=== PATIENT | female | born 1975 | race Caucasian/White ===

== ENCOUNTER 2023-09-29 13:30 | Inpatient (IN) | payer OTHER, SELFPAY ==
[2023-09-29] VITALS (8 sets, daily range): BP systolic 129–159; BP diastolic 79–118; PULSE 101–127; RESP 16–38; TEMP 36.3–38.4; O2SAT 74–99
--- NOTE | ~2023-09-29 | XR_ITS ---
EXAMINATION: XR foot RT min 3V DATE: 09/29/2023 17:31 INDICATION: Dry gangrene at the dorsum of the right foot TECHNIQUE: Dorsoplantar, oblique and lateral views of the right foot were obtained. COMPARISON: None. FINDINGS: Alignment is normal. No fracture. Joint spaces are normal. No cortical erosions or periosteal reactio n. Mild soft tissue swelling over the dorsum of the foot. Assess for radiopaque foreign bodies. IMPRESSION: 1. No osseous abnormality. Reviewed, dictated and finalized at location A. EAR MANUFACTURING SUPERVISOR IMPRESSION: 1. No osseous abnormality.
--- NOTE | ~2023-09-29 | XR_ITS ---
Portable chest x-ray Comparison: None Clinical History: Desaturation Findings: There is mild bibasilar haziness. Cardiomediastinal silhouette is enlarged. Bones and sof t tissues are unremarkable. Impression: Probable mild bibasilar pulmonary edema. Cardiomegaly. Reviewed, dictated and finalized at [facility]. T PRACTICE INTERN Impression: Probable mild bibasilar pulmonary edema. Cardiomegaly.
--- NOTE | ~2023-09-29 | XR_ITS ---
EXAMINATION: XR chest ET placement, XR abdomen gastric tube insert DATE: 09/30/2023 18:16 INDICATION: Endotracheal tube and orogastric tube placement TECHNIQUE: 1. Prone AP view of the chest was obtained. 2. Prone AP view of the abdomen was obtained. COMPARISON: CT dated 09/30/2023 FINDINGS: Chest: Endotracheal tube tip 3 mm above the gregory. Hazy airspace opacities in the right lower lung zone and more dense consolidation in the left lower lung zone consistent with small bilateral posterior layer ing pleural effusions and associated atelectasis and/or pneumonia. No pneumothorax. Cardiomegaly. Abdomen: Nasogastric tube tip in proximal side port in the body the stomach. There are persistent delayed neph rograms at the bilateral kidneys which given the 18 hours of the elapsed time would be consistent wit h renal insufficiency. No dilated loops of bowel to suggest obstruction. IMPRESSION: 1. Endotracheal tube tip 3 mm above the gregory. Consider withdrawal by 2 cm. 2. Nasogastric tube in the stomach. 3. Small bilateral pleural effusions with associated atelectasis and/or pneumonia in the lower lung z ones, left greater than right. 4. Cardiomegaly. 5. Bilateral delayed nephrograms consistent with renal insufficiency. Reviewed, dictated and finalized at location A. LER PICKUP IMPRESSION: 1. Endotracheal tube tip 3 mm above the gregory. Consider withdrawal by 2 cm. 2. Nasogastric tube in the stomach. 3. Small bilateral pleural effusions with associated atelectasis and/or pneumon ia in the lower lung zones, left greater than right. 4. Cardiomegaly. 5. Bilateral delayed nephrograms consistent with renal insufficiency.
--- NOTE | ~2023-09-29 | XR_ITS ---
EXAMINATION: XR foot LT min 3V DATE: 09/29/2023 17:31 INDICATION: Heel ulceration TECHNIQUE: Dorsoplantar, oblique and lateral views of the left foot were obtained. COMPARISON: None. FINDINGS: Alignment is normal. No fracture. Joint spaces are normal. No erosions or periosteal reaction. There is prominent soft tissue swelling over the dorsum of the foot. No soft tissue gas or radiopaque forei gn bodies. IMPRESSION: 1. Soft tissue swelling over the dorsum of the foot. No osseous abnormality. Reviewed, dictated and finalized at location A. FRAME SYSTEMS ADMINISTRATOR
--- NOTE | ~2023-09-29 | CT_ITS ---
CT scan of the right foot CLINICAL HISTORY: Osteomyelitis, gangrene TECHNIQUE: Following intravenous administration of 200 cc of Omnipaque 350 contrast material, axial i maging of the right foot was performed. Sagittal and coronal imaging was performed. Dose reduction te chnique was used on this scan by utilizing automated exposure control and iterative reconstruction te chnique. The dose-length product (DLP) was 878.77 mGy-cm. Findings: Osseous structures are intact. No fracture, dislocation, or CT evidence for osteomyelitis i dentified. No periosteal reaction or erosive change identified. Joint spaces are preserved, without e vidence of degenerative or erosive change. There is extensive subcutaneous soft tissue edema about the ankle and extending over the dorsum of th e foot. No fluid collection evident. No distinct soft tissue ulcer clearly evident. IMPRESSION: No osseous or articular abnormality seen. No evidence for osteomyelitis. Extensive subcutaneous soft tissue edema, which could reflect cellulitis. No abscess evident. Reviewed, dictated and finalized at location . M CONDITIONING OPERATOR IMPRESSION: No osseous or articular abnormality seen. No evidence for osteomyelitis. Extensive subcutaneous soft tissue edema, which could reflect cellulitis. No ab scess evident.
--- NOTE | ~2023-09-29 | CT_ITS ---
Clinical Indication: Pulmonary embolus CT Scan of the Chest with Contrast: Technique: Contiguous sections were acquired throughout the chest after intravenous administration of 200 cc of Omnipaque 350. Dose reduction technique was used on this scan by utilizing automated expos ure control and iterative reconstruction technique. The dose-length product (DLP) was 994.96 mGy-cm. Findings: There is no evidence of any significant mediastinal, hilar or axillary lymphadenopathy. There is no f illing defect in the pulmonary arterial tree to suggest pulmonary embolus. There is no evidence of ao rtic dissection or aneurysm. Moderate pericardial effusion present. Moderate bilateral pleural effusions are present. There is partial bilateral lower lobe atelectasis. There is probable minimal groundglass opacity in the aerated lungs. The lungs are clear. No pulmonary nodules or infiltrates are noted. Images through the upper abdomen reveal no abnormalities. Diffuse soft tissue anasarca changes are no arie. Impression: No evidence of pulmonary embolus, aortic dissection, or aortic aneurysm. Moderate pericardial effusion. Moderate bilateral pleural effusions with partial bilateral lobe atelectasis and minimal pulmonary ed zain. Diffuse soft tissue anasarca changes. Reviewed, dictated and finalized at location . NTIFIC RECRUITER Impression: No evidence of pulmonary embolus, aortic dissection, or aortic aneurysm. Moderate pericardial effusion. Moderate bilateral pleural effusions with partial bilateral lobe atelectasis an d minimal pulmonary edema. Diffuse soft tissue anasarca changes.
--- NOTE | ~2023-09-29 | XR_ITS ---
Portable chest x-ray Comparison: 09/30/2023 Clinical History: Tube placed Findings: Endotracheal tube and NG tube are in satisfactory positions. There is extensive bibasilar pulmonary consolidation, left worse than right. Cardiomediastinal silhouette is stable. Bones and so ft tissues are unremarkable. Impression: Support tubes, as above. Bibasilar pulmonary consolidation, personally. Correlate for pulmonary edema/effusions/atelectasis ve rsus pneumonia. Reviewed, dictated and finalized at location M. USION DIE TEMPLATE MAKER Impression: Support tubes, as above. Bibasilar pulmonary consolidation, personally. Correlate for pulmonary edema/ef fusions/atelectasis versus pneumonia.
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
[2023-09-29 15:00] LABS: Basophils Percent Auto 0.2 % (0.2-1.2); Eosinophils Percent Auto 0.1 % (0-4.4); Hematocrit 46.9 % (37.0-47.0); Hemoglobin 14.8 g/dL (12.0-15.0); Immature Granulocyte Absolute 0.11 K/mm3 (0.00-0.031); Immature Granulocyte Percent A 0.7 % (0-0.5); Lymphocytes Absolute Auto 1.63 K/mm3 (0.9-3.2); Lymphocytes Percent Auto 10.6 % (18.3-44.2); Mean Corpuscular HGB Conc 31.6 g/dl (32-36); Mean Corpuscular Hemoglobin 30.3 pg (26-34); Mean Corpuscular Volume 96.1 fl (80-100); Mean Platelet Volume 11.2 fl (7.4-10.4); Monocytes Absolute Auto 0.8 K/mm3 (0.1-0.6); Monocytes Percent Auto 5.2 % (2.6-8.5); Neutrophils Absolute Auto 12.8 K/mm3 (1.3-6.7); Neutrophils Percent Auto 83.2 % (45.5-73.1); Platelet Count Result 187 k/mm3 (150-375); Red Blood Count 4.88 M/mm3 (4.2-5.4); Red Cell Distribution Width 17.3 % (11.5-14.5); White Blood Count 15.3 K/mm3 (4.5-10.0)
--- NOTE | 2023-09-29 15:05 | PC.NURSE ---
pt refusing additional IV attempt. refusing to have x-rays done at this time. pt states she hasn't had 30 seconds to process everything and this is just too much . edp aware
[2023-09-29 15:10] LABS: INR 1.3; Lactic Acid Reflex 2.5 mmol/L (0.7-2.0); Prothrombin Time 16.7 Seconds (11.1-14.7)
[2023-09-29 15:11] LABS: Partial Thromboplastin Time 28.4 SECONDS (22.3-36.8)
[2023-09-29 15:23] LABS: Alanine Aminotransferase 72 U/L (6-35); Albumin Level 3.4 g/dL (3.5-5.1); Alkaline Phosphatase 113 U/L (38-126); Anion Gap 9 mmol/L (8-16); Aspartate Amino Transferase 82 U/L (14-36); Bilirubin,Total 1.2 mg/dL (0.2-1.3); Blood Urea Nitrogen 26 mg/dL (7-17); Calcium 8.7 mg/dL (8.4-10.2); Carbon Dioxide 24 mmol/L (22-30); Chloride 100 mmol/L (98-107); Estimated CRCL calculation 85 ml/min; Estimated Glomerular Filt Rate > 60; Glucose 192 mg/dL (65-110); Potassium 3.4 mmol/L (3.4-5.0); Sodium 133 mmol/L (137-145)
[2023-09-29 16:15] LABS: CRP 6.6 mg/dL (<1.0)
--- NOTE | 2023-09-29 16:29 | PC.NURSE ---
pt refusing additional IV attempt for medications. refusing x-rays still. pt states she doesn't know what to think. i don't know what to do, i just want to be done
--- NOTE | 2023-09-29 17:28 | PC.NURSE ---
edp at bedside, pt agreeable to get x-rays, IV and fluids, and provide a UA.
[2023-09-29 17:35] LABS: Appearance Urine Clear (Clear); Bacteria Urine None Seen /hpf; Bilirubin Urine Negative (Negative); Blood Urine 2+ (Negative); Color Urine Dark Yellow (Yellow); Glucose Urine UA Negative (Negative); Ketones Urine Negative (Negative); Leukocyte Esterase Ur Negative LEU/UL (Negative); Need Manual Microscopic Reviewed; Nitrate Urine Negative (Negative); Protein Urine 3+ mg/dL (Negative); Specific Grav Ur 1.025 (1.001-1.035); Squamous Epithelial Cell Urine Few /hpf (Few); pH Urine 5.5 (5.0-9.0)
[2023-09-29 17:36] LABS: Add Urine Microscopic? YES; Barbiturate Screen Urine Negative (Negative); Benzodiazepines Screen Urine Negative (Negative)
[2023-09-29 17:57] LABS: Reflex Lactic Acid Yes or No Add Lactic
[2023-09-29] MEDS: SODIUM CHLORIDE 0.9% IV 1,000 ML 999 ML IV CONT (18:24)
[2023-09-29 18:48] LABS: Cannabinoid Screen Urine Positive (Negative); Cocaine Screen Urine Negative (Negative); Methadone Screen Urine Negative (Negative); Opiate Screen Urine Negative (Negative); Phencyclidine Screen Urine Negative (Negative)
[2023-09-29 18:50] LABS: Amphetamine Screen Urine Positive (Negative)
--- NOTE | 2023-09-29 19:14 | PC.NURSE ---
pt c/o itchiness to right ankle. advised not to scratch, states she will try but it's really itchy and i can't help it
[2023-09-29] MEDS: diphenhydrAMINE HCl INJ 50 MG/ML VIAL 25 MG IV PUSH (19:37)
[2023-09-29] MEDS: PIPERACILLN/TAZ 3.375GM/NS50ML 3.375 GM/50 ML BAG IVPB (20:10)
[2023-09-29] MEDS: SODIUM CHLORIDE 0.9% IV 1,000 ML 125 ML IV CONT (20:11)
--- NOTE | 2023-09-29 20:49 | PC.NURSE ---
pt began hyperventilating, stating she can't breathe. pt non-compliant with pulse-ox or tele-leads, continuing to pull them off. pt given 15L o2 via NRB for comfort and RN attempted to do guided breathing to help pt slow breathing down. pt states i can't slow down while i can't breath! pt pulled o2 mask down to chin, but is leaving on face. attempted to call hospitalist for update and orders, awaiting call back
--- NOTE | 2023-09-29 21:38 | PC.NURSE ---
Addendum entered by Heike Navarrete RN 09/30/23 04:58: During rapid response pt adamently refusing to wear non rebreather and keeps saying she wants to be left alone. Pt being aggressive with staff when staff tried to educate importance of rapid response being called and more people showing up. Pt is agitated she cannot have something to drink and angry so many people are in her room. Repeatedly the non rebreather was placed on pt to maintain appropriate sats as pt continually tried to take the mask off. Medication given per OCT, ekg done, chest xray taken, moore placed and RT obtained blood gases. Pt became somnolent. Pt taken to CT and then transferred to ICU at 0020. Addendum entered by Heike Navarrete RN 09/30/23 03:12: At 2230 patient district manager primary care sales was able to obtain vital signs. PCT called me into the room because patient was found to be satting in the 70s on room air. Non rebreather at 15L placed on patient with minimal improvement in oxygen saturations. Charge nurse Adelita was called to the room and Dr Miranda also came to the room. Pt still ripping off mask after being educated multiple times the importance of keeping it on and saying she just needs to breath for a minute with it off. Oxygen saturations quickly drop to the low 80s without the non rebreather on. A rapid response was called at 2250 for desaturation and elevated heart rate. Pt still aggressively refusing treatment and saying she doesnt want a bunch of people in her room and that she wants to be left alone. Addendum entered by Heike Navarrete RN 09/30/23 01:12: This nurse went into room at 2145 and patient still hyperventilating and refusing to answer questions and refusing to put oxygen back on. Pt also not allowing us to obtain vital signs. This nurse explained importance of wearing oxygen to maintain appropriate oxygen levels. Pt still refusing to wear oxygen. When this nurse approaches patient for a physical assessment pt swats at me and tells me to go away and shes not answering any questions at this time and for me to leave her alone. Original Note: Patient arrives from ER hyperventilating and wheezing. Once she was in the bed she threw her non rebreather mask on the ground. I introduced myself and she kept repeating not right now, not right now. When this nurse tried to question what was causing the anxiety patient kept saying she just needs to breath and wants to be left alone. Will attempt assessment and admission shortly.
--- NOTE | 2023-09-29 21:42 | ADMGEN ---
This patient, Nick Weldon, was admitted to [facility] Surg Room 323-02. Patient/family oriented to hospital policies and general routines including ID bracelet, bed and alarms, visiting hours, pain management, procedures, bathroom and other care routines, personal items, smoking policy, room service/diet, and visiting hours. Information on how to activate the Rapid Response Team has been discussed. Patient/Family are encouraged to report perceived risks to care and to ask questions if they do not understand what they are told or what they should do.
[2023-09-29] MEDS: ONDANSETRON INJ 4 MG/2 ML VIAL IV PUSH (22:32)
--- NOTE | 2023-09-29 22:50 | PC.NURSE ---
Pt agitated refusing to keep her O2 mask on, Pt O2 saturation went down into the 70's before O2 placed back on. Pt yelling at staff that she would not keep O2 on. HR 127. She wanted to be left alone. O2 Saturation in 80's increased O2 to 15 Land pt wheezing and short of breath. O2 saturation up to 90. Pt continues to pull of O2. Dr Miranda came by pt room and did an assessment and decided that we should call a rapid response.
--- NOTE | 2023-09-29 23:00 | ECG_ITS ---
Measurements Intervals [place] Rate: 114 P: 75 TX: 116 QRS: 131 QRSD: 71 T: 24 QT: 303 QTc: 418 Interpretive Statements SINUS TACHYCARDIA WITH SHORT TX INTERVAL LEFT ATRIAL ENLARGEMENT [-0.15mV P WAVE IN V1/V2] POSSIBLE RIGHT VENTRICULAR HYPERTROPHY [SOME/ALL OF: PROMINENT R IN V1, LATE TRANSITION, RAD, ASHLEY, SSS] POSSIBLE ANTERIOR MYOCARDIAL INFARCTION , OF INDETERMINATE AGE [30 ms Q WAVE IN V3/V4, OR R < 0.2 mV IN V4] ABNORMAL ECG NO PREVIOUS ECG AVAILABLE FOR COMPARISON Electronically Signed On 09-30-2023 12:38:22 FRONT TENDER by Josh Lauren M.D.
--- NOTE | 2023-09-29 23:00 | PC.NURSE ---
Pt yelling at staff and resisting care. Pt continues to be uncooperative Dr Miranda explained to pt that she needs to keep O2 in place and that we need to obtain labs in order to find out what is wrong. Pt continues to be uncooperative.
[2023-09-29] MEDS: LORazepam INJ (*CRX) 2 MG/ML VIAL 1 MG IV PUSH ×2 (23:15→23:16)
[2023-09-29] MEDS: HYDROmorphone HCL INJ (*CRX) 1 MG/ML SYR IV PUSH (23:21)
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
[2023-09-29 23:41] LABS: Alveolar/Arterial O2 Gradient 604.2 mmHg; Base Excess ABG -4.9 mEq/l (+/-2.0); Fractional Inspired Oxygen 100 %; HCO3 ABG 18.3 mEq/l (22.0-26.0); Oxygen Content ABG 20.3 %vol (16.0-22.0); Oxyhemoglobin 94.1 % THb (90.0-100.0); PCO2 ABG 29.5 mmHg (35.0-45.0); PO2 ABG 79.3 mmHg (80.0-100.0); PO2 FiO2 Ratio Arterial Blood 0.79 %; Total Hemoglobin 15.3 g/dL (12.0-18.0)
[2023-09-29 23:43] LABS: Device NON-REBREATHER MASK; Modified Allen's Test Pass; Site Drawn RIGHT RADIAL
[2023-09-29] MEDS: LEVALBUTEROL NEB 1.25 MG/3 ML 5 MG INHALATION (23:51)
[2023-09-29] MEDS: IPRATROPIUM BR 0.02% INH SOLN 0.5 MG/2.5 ML VIAL 2 MG INHALATION (23:51)
[2023-09-30] VITALS (90 sets, daily range): BP systolic 48–160; BP diastolic 17–143; PULSE 12–194; RESP 11–30; TEMP 37.6–38.7; O2SAT 85–100
--- NOTE | 2023-09-30 | ECHO_ITS ---
Patient Info Name: Nick Weldon Age: 47 years : 1975 Gender: Female Ht: 64 in Wt: 206 lbs BSA: 2.09 m2 HR: 113 bpm BP: 91 / 29 mmHg Technical Quality: Poor Exam Date: 09/30/2023 9:56 AM Exam Location: Echo Lab Patient Status: Inpatient Admit Date: 09/30/2023 Staff Ordering Physician: Kimberli Miranda DO Printed Circuit Board Reworker: Daniella Ayala RDCS Attending Provider: Kimberli Miranda DO Referring Physician: Ruth LEDEZMA; Exam Type: CA echo dop color flow w con Study Info Indications - cardiomegaly , hypoxia Complete two-dimensional, color flow and Doppler transthoracic echocardiogram is performed with contrast to opacify the left ventricle and to improve the deliniation of the left ventricle endocardial borders. Contrast/Agitated Saline Contrast/Ag. Saline: Definity Amount: 3.00 ml Reason for Poor Study: poor patient cooperation Summary 1. Technically difficult study. 2. Left ventricular chamber dimension is normal. 3. Left ventricular systolic function is mildly reduced, estimated at 45-50%. 4. There is mildly increased left ventricular wall thickness. 5. Right ventricular chamber dimension is severely enlarged. 6. Right ventricular systolic function is normal. 7. Flattening of the septum in diastole and systole consistent with right ventricular volume and pressure overload. 8. Right atrial chamber dimension is severely enlarged. 9. There is severe tricuspid valve regurgitation. 10. There is mild pulmonic regurgitation. 11. There is moderate circumferential pericardial effusion. No echocardiographic evidence of tamponade. 12. Left pleural effusion seen. Left Ventricle Left ventricular chamber dimension is normal. Left ventricular systolic function is mildly reduced, estimated at 45-50%. There is mildly increased left ventricular wall thickness. Right Ventricle Flattening of the septum in diastole and systole consistent with right ventricular volume and pressure overload. Right ventricular chamber dimension is severely enlarged. Right ventricular systolic function is normal. Left Atria Left atrial chamber dimension is normal. Right Atria Right atrial chamber dimension is severely enlarged. Atrial Septum Intact interatrial septum visualized by color flow imaging. Aortic Valve The aortic valve is probable trileaflet. There is no aortic valve stenosis. There is no aortic valve regurgitation. Pulmonic Valve The pulmonic valve is not well visualized. There is mild pulmonic regurgitation. Mitral Valve There is trace mitral valve regurgitation. Tricuspid Valve There is severe tricuspid valve regurgitation. Pericardium/Pleural Left pleural effusion seen. There is moderate circumferential pericardial effusion. No echocardiographic evidence of tamponade. Inferior Vena Cava Inferior vena cava is not well visualized. Aorta The aortic root size at the sinus of Valsalva is normal. Left Ventricular Outflow Tract Name Value Normal LVOT 2D LVOT Diameter 1.74 cm LVOT Doppler LVOT Peak Gradient 4 mmHg LVOT Mean Gradient 3 mmHg LVOT VTI 17.52 cm
--- NOTE | 2023-09-30 00:49 | PC.NURSE ---
0015 Received report from KOFI Burroughs
--- NOTE | 2023-09-30 00:50 | PC.NURSE ---
0020 patient arrived to ICU [address] accompanied by KOFI Almeidaproperty supervisor and KOFI Ureña Medical charge nurse.
--- NOTE | 2023-09-30 01:08 | PC.NURSE ---
Pt has no contact information listed. We are unable to contact any family at this time. Pt is unable to anwer any questions at this time.
--- NOTE | 2023-09-30 01:22 | PC.NURSE ---
Pt uncooperative and refused to answer admission questions. There is no family listed in her contacts.
--- NOTE | 2023-09-30 01:41 | PCRCNOTE ---
continuous nebulizer ordered for pt during rapid response at 2257. Pt would not leave face mask on at beginning of this tx. Pt desaturating therefore non-rebreather was put back on. Pt moved to ICU and will attempt breathing tx there.
[2023-09-30 01:42] LABS: Alveolar/Arterial O2 Gradient 571.8 mmHg; Base Excess ABG -4.3 mEq/l (+/-2.0); Carboxyhemoglobin 3.7 % THb (0-2.0); Fractional Inspired Oxygen 100 %; HCO3 ABG 17.5 mEq/l (22.0-26.0); Methemoglobin ABG 0.4 %THb (0-1.5); Oxygen Content ABG 21.2 %vol (16.0-22.0); Oxygen Saturation ABG 98.5 % (95.0-100.0); Oxyhemoglobin 94.1 % THb (90.0-100.0); PCO2 ABG 25.3 mmHg (35.0-45.0); PO2 ABG 115.9 mmHg (80.0-100.0); PO2 FiO2 Ratio Arterial Blood 1.16 %; Reduced Hemoglobin 1.8 %THb (0-5.0); Total Hemoglobin 15.9 g/dL (12.0-18.0); pH ABG 7.458 (7.350-7.450)
[2023-09-30 01:43] LABS: Modified Allen's Test Pass; Site Drawn RIGHT RADIAL
[2023-09-30 01:44] LABS: Device NON-REBREATHER MASK
[2023-09-30] MEDS: dexmedeTOMIDine 400 MCG/100 ML 400 MCG/100 ML BAG 11.24 MCG IV CONT ×2 (02:27→17:26)
[2023-09-30 03:09] LABS: Influenza A QL RT-PCR Negative (Negative); Influenza B QL RT-PCR Negative (Negative); RSV RNA, RT-PCR Negative (Negative); SARS-CoV-2 RNA PCR Negative (Negative)
[2023-09-30] MEDS: VANCOMYCIN 1,250 MG/NS 250 ML 1,250 MG/250 ML BAG 166.67 MG IVPB (03:20)
[2023-09-30] MEDS: IPRATROPIUM BR 0.02% INH SOLN 0.5 MG/2.5 ML VIAL INHALATION ×4 (03:40→20:10)
[2023-09-30 03:48] LABS: MRSA (PCR) DETECTED (NOT DETECTE)
[2023-09-30 03:53] LABS: Hematocrit 49.3 % (37.0-47.0); Hemoglobin 15.1 g/dL (12.0-15.0); Mean Corpuscular HGB Conc 30.6 g/dl (32-36); Mean Corpuscular Hemoglobin 30.3 pg (26-34); Mean Corpuscular Volume 98.8 fl (80-100); Mean Platelet Volume 11.2 fl (7.4-10.4); Platelet Count Result 155 k/mm3 (150-375); Red Blood Count 4.99 M/mm3 (4.2-5.4); Red Cell Distribution Width 17.8 % (11.5-14.5); White Blood Count 21.8 K/mm3 (4.5-10.0)
[2023-09-30] MEDS: NOREPINEPHRINE 8 MG/D5W 250 ML 8 MG/250 ML BAG 9.38 MG IV CONT (04:00)
--- NOTE | 2023-09-30 04:01 | P.PCNBED_ITS ---
Procedures Central Line Placement Right Femoral: Central Line Date: 09/30/23 Central Line Time: 03:05 Performed Emergently - Given emergent patient condition, temporal constraints may have precluded informed consent.: Yes Time Out Performed: Yes Patient Position: trendelenburg Patient placed on monitor/pulse ox: Yes Provider Prep: mask, sterile gown, sterile gloves, Max. sterile barrier precautions, cap and hand hygiene with conventional soap/water or alcohol based hand rub Central line prep: 2% Chlorhexidine scrub Sterile US Technique with sterile gel/sterile probe covers: Yes Central line lumen inserted: triple Grenadian: 7 Length (cm): 16 Depth of Insertion (cm): 16 Post Procedure: sutured in place, good blood return, all ports aspirated, flushed, capped, transparent dressing, hemostatic product, antimicrobial product, securement product and aseptic technique maintained throughout procedure Patient tolerated procedure: well
[2023-09-30 04:06] LABS: CRP 6.3 mg/dL (<1.0)
[2023-09-30 04:13] LABS: Lactic Acid Reflex 6.7 mmol/L (0.7-2.0)
--- NOTE | 2023-09-30 04:20 | ECG_ITS ---
Measurements Intervals [place] Rate: 99 P: 219 ID: [id number] QRS: 135 QRSD: 77 T: 105 QT: 324 QTc: 417 Interpretive Statements SINUS RHYTHM WITH MARKED SINUS ARRHYTHMIA POSSIBLE RIGHT VENTRICULAR HYPERTROPHY [SOME/ALL OF: PROMINENT R IN V1, LATE TRANSITION, RAD, ASHLEY, SSS] ANTEROSEPTAL MYOCARDIAL INFARCTION [40+ ms Q WAVE IN V1-V4], PROBABLY OLD LOW VOLTAGE ABNORMAL ECG COMPARED TO ECG 09/29/2023 23:09:48 SINUS RHYTHM NOW PRESENT SINUS ARRHYTHMIA NOW PRESENT Electronically Signed On 09-30-2023 12:41:16 VISUAL SUPERVISOR by Josh Lauren M.D.
--- NOTE | 2023-09-30 04:21 | PC.NURSE ---
At 0015 report was given to ICU nurse Teresa. All questions answered at this time.
[2023-09-30 04:22] LABS: INR 1.5; Partial Thromboplastin Time 30.7 SECONDS (22.3-36.8); Prothrombin Time 19.2 Seconds (11.1-14.7)
[2023-09-30 04:23] LABS: Fibrinogen 292 mg/dl (215-510)
[2023-09-30 04:36] LABS: D Dimer 8.47 ug/mL (<0.48)
[2023-09-30] MEDS: PIPERACILLN/TAZ 3.375GM/NS50ML 3.375 GM/50 ML BAG IVPB (04:40)
[2023-09-30] MEDS: MINERAL OIL/WHITE PETROLATUM OINTMENT 1 APPLIC EACH EYE (04:40)
--- NOTE | 2023-09-30 04:40 | PC.NURSE ---
01:45 Call placed to [place] police department. No contact listed. Unable to reach family to update on patient condition changes. Dispatch will have them return call. 03:15 Spoke with Sergeant Orosco with [place] police [employer]. Patient is well known to them. Stated patient has a son named Gonzalo Guzman. No contact information as her son is homeless and has a psychiatric history. She has an ex-, Rae Kumarer. His last known contact information is [phone] [address] [place], [place] Her last known address was [address] [place] [address] in [place]. Sergeant Orosco stated he will drive by the address and ask for family information.
[2023-09-30] MEDS: VANCOMYCIN 1,000 MG/NS 250 ML 1,000 MG/250 ML BAG 250 MG IVPB (04:43)
[2023-09-30] MEDS: SODIUM BICARBONATE 8.4% 50 MEQ/50 ML SYRINGE IV PUSH ×2 (04:44)
[2023-09-30] MEDS: FUROSEMIDE INJ 40 MG/4 ML VIAL IV PUSH (04:47)
--- NOTE | 2023-09-30 04:51 | P.PNCROSS_ITS ---
Event Note Event Note Event Note: Following central line placement the patient's blood pressures precipitously dr opped. Levophed was started. Patient's lactic acid returned critical at 6.3. Two amps of sodium bicarb were administered. Patient was having narrow pulse pressure. I attempted bedside ultrasound to evaluate patient's pericardial effusion and cardiac output. I did not appreciate a large pericardial effusion that was mentioned on CT of the chest. I do not appreciate tamponade physiology. Patient's blood pressure finally stabilized after 2nd amp of bicarb and Levophed at 20. Patient now fits criteria for septic shock. Patient's respiratory status remains stable on Airvo 50 L at 100%. During the central line patient's blood did clot within the needle several times. Given acutely ill appearance and concern for possible coagulopathy DIC panel is been added to a.m. labs. Carton Gluing Machine Operator was contacted and updated as to the patient's clinical course. An additional 45 minutes was spent in critical care activities. Due to a high probability of clinically significant, life threatening deterioration, the patient required my highest level of preparedness to intervene emergently and I personally spent this critical care time directly and personally managing the patient. This critical care time included obtaining a history; examining the patient; pulse oximetry; ordering and review of studies; arranging urgent treatment with development of a management plan; evaluation of patient's response to treatment; frequent reassessment; and discussions with other providers. It was exclusive of separately billable procedures and treating other patients and teaching time. Please see Assessment and Plan section and the rest of the note for further information on patient assessment and treatment.
[2023-09-30 05:14] LABS: Magnesium 1.6 mg/dL (1.6-2.3); Phosphorus 3.3 mg/dL (2.5-4.5)
[2023-09-30 05:16] LABS: Albumin Level 2.6 g/dL (3.5-5.1); Alkaline Phosphatase 117 U/L (38-126); Anion Gap 12 mmol/L (8-16); Aspartate Amino Transferase 74 U/L (14-36); Bilirubin,Total 1.5 mg/dL (0.2-1.3); Blood Urea Nitrogen 28 mg/dL (7-17); Calcium 8.1 mg/dL (8.4-10.2); Carbon Dioxide 16 mmol/L (22-30); Chloride 104 mmol/L (98-107); Estimated CRCL calculation 62 ml/min; Estimated Glomerular Filt Rate 53; Glucose 154 mg/dL (65-110); Potassium 3.6 mmol/L (3.4-5.0); Sodium 132 mmol/L (137-145)
[2023-09-30 05:23] LABS: NT Pro B Type Natriuretic Pept 21200 pg/mL (19.9-100)
[2023-09-30 05:29] LABS: Alanine Aminotransferase 66 U/L (6-35)
[2023-09-30 05:39] LABS: Hepatitis B Surface Antigen Negative (Negative)
[2023-09-30 05:41] LABS: Hepatitis B Surface Antigen 0.07 S/C
[2023-09-30 05:45] LABS: HAV RESULT Negative (Negative); Hepatitis B Core IgM Result Negative (Negative)
[2023-09-30 05:54] LABS: Hepatitis A Antibody IgM 0.03 s/c; Hepatitis B Core Antibody, IgM 0.04 S/C
[2023-09-30 06:41] LABS: Hepatitis C Virus Antibody Reactive (Negative)
[2023-09-30 06:50] LABS: Reflex Lactic Acid Yes or No Add Lactic
[2023-09-30] MEDS: HEPARIN SODIUM 5,000 UNITS/ML VIAL 4000 UNITS IV PUSH (06:56)
[2023-09-30] MEDS: HEPARIN SOD/D5W 100 UNITS/ML 25,000 UNITS/250 ML BAG 8 UNITS IV CONT (06:57)
[2023-09-30 07:18] LABS: Glucose Point of Care 149 mg/dl (65-105)
[2023-09-30] MEDS: LEVALBUTEROL NEB 1.25 MG/3 ML INHALATION ×3 (07:31→20:10)
[2023-09-30 09:16] LABS: Lactic Acid 8.7 mmol/L (0.7-2.0)
[2023-09-30] MEDS: MEROPENEM 500 MG in SODIUM CHLORIDE 0.9% IV 100 ML 200 ML IVPB ×2 (09:39→18:32)
[2023-09-30] MEDS: dexmedeTOMIDine 400 MCG/100 ML 400 MCG/100 ML BAG 13.49 MCG IV CONT (09:43)
--- NOTE | 2023-09-30 10:02 | WPDCNINT ---
Assessment and Plan Assessment and plan (1) Shock: Code(s): R57.9 - Shock, unspecified Status: Acute Assessment and Plan: Patient shock appears multifactorial secondary to sepsis and possible cardiogenic Echo has been done and report pending Patient is overall volume overloaded hence will hold further fluids Continue Levophed titration to maintain mean arterial pressure. Add hydrocortisone and vasopressin infusion Blood and urine culture have been sent and are pending Echo has been done to evaluate for vegetations Continue vancomycin and meropenem at this time (2) Sepsis: Qualifiers: Sepsis type: sepsis due to unspecified organism Sepsis acute organ dysfunction status: with acute organ dysfunction Severe sepsis acute organ dysfunction type: acute respiratory failure Acute respiratory failure type: with hypoxia Severe sepsis shock status: without septic shock Qualified Code(s): A41.9 - Sepsis, unspecified organism; R65.20 - Severe sepsis without septic shock; J96.01 - Acute respiratory failure with hypoxia Code(s): A41.9 - Sepsis, unspecified organism Status: Acute Assessment and Plan: Patient has cellulitis of right leg. Does not appear to have osteomyelitis on the CT scan or abscess on exam Patient was evaluated by general surgery. No surgical intervention indicated at this time (3) Pericardial effusion: Code(s): I31.39 - Other pericardial effusion (noninflammatory) Status: Acute Assessment and Plan: Moderate-sized pericardial effusion. Echo done to evaluate for tamponade. echo report pending (4) Pleural effusion: Code(s): J90 - Pleural effusion, not elsewhere classified Status: Acute Assessment and Plan: Likely secondary to congestive heart failure (5) Anasarca: Code(s): R60.1 - Generalized edema Status: Acute Assessment and Plan: Patient appears to have anasarca with volume overload likely secondary to congestive heart failure Hold further IV fluids Echo pending TSH is normal (6) Type 2 diabetes mellitus: Qualifiers: Diabetes mellitus detention insulin use: without detention use Diabetes mellitus complication status: with hyperglycemia Qualified Code(s): E11.65 - Type 2 diabetes mellitus with hyperglycemia Code(s): E11.9 - Type 2 diabetes mellitus without complications Status: Acute Assessment and Plan: No known diagnosis of diabetes with HbA1c 7.0 Sliding scale at this time (7) Acute hypoxic respiratory failure: Code(s): J96.01 - Acute respiratory failure with hypoxia Status: Acute Assessment and Plan: CT scan showed moderate bilateral pleural effusions with atelectasis. Negative for PE Continue currently on high-flow nasal cannula. Not in any respiratory distress this time and maintaining saturation At risk of requiring intubation. Monitor closely in ICU Antibiotics as above She may need thoracentesis but currently on heparin (8) Polysubstance abuse: Code(s): F19.10 - Other psychoactive substance abuse, uncomplicated Status: Acute (9) Dry gangrene: Code(s): I96 - Gangrene, not elsewhere classified Status: Acute Assessment and Plan: Large area of dry gangrene wound on dorsal aspect of right foot and left heel Patient was evaluated by general surgery. No surgical intervention indicated at this time (10) Cellulitis: Code(s): L03.90 - Cellulitis, unspecified Status: Acute Assessment and Plan: Cellulitis of right leg. Foot CT does not show any evidence of osteomyelitis or subcutaneous gas No crepitus on exam or abscess (11) Cardiomyopathy: Code(s): I42.9 - Cardiomyopathy, unspecified Status: Acute Assessment and Plan: Patient has anasarca and echocardiogram suggest cardiomyopathy. Unknown etiology at this time Echocardiogram done and pending (12) Elevated troponin: Code(s)
--- NOTE | 2023-09-30 10:07 | PM.CNGS ---
Assessment and Plan Assessment and plan (1) Shock: Code(s): R57.9 - Shock, unspecified Status: Acute Assessment and Plan: Septic vs cardiogenic vs combination. She developed hypotension after admission and is now on vasopressor support. White blood cell count and lactic acid continues to rise, with her lactic acid at 8.7 today. She has pulses in bilateral feet without evidence of an ischemic leg. Her bilateral foot wounds appear stable with no evidence of an abscess on CT or on exam. There is no wet gangrene or significant necrotic tissue that would require surgical debridement at this time. Her foot wounds do not appear to be the cause of her septic shock. Will initiate local wound care and continue to closely monitor for any acute changes. Continue to treat her other medical issues and evaluate other potential sources for septic shock. No indication for any urgent surgical intervention at this time. (2) Foot ulcer: Code(s): L97.509 - Non-pressure chronic ulcer of other part of unspecified foot with unspecified severity Status: Acute Assessment and Plan: Right dorsal foot wound with a large area of black eschar that is firm and appears stable. No signs of a deeper infection/abscess on CT or on exam. Left heel ulcer is smaller and is covered with a black eschar as well. Etiology of the wounds is unclear and patient is unable to provide any history at this time. They are not vascular wounds. This could be related to her drug use. Continue local wound care. Elevate heels off bed. See plan above. (3) Pericardial effusion: Code(s): I31.39 - Other pericardial effusion (noninflammatory) Status: Acute Assessment and Plan: Noted on chest CTA. Cardiology consulted. Echocardiogram pending. (4) Pleural effusion: Code(s): J90 - Pleural effusion, not elsewhere classified Status: Acute (5) Elevated troponin: Code(s): R79.89 - Other specified abnormal findings of blood chemistry Status: Acute Assessment and Plan: Elevated troponins up to 6.96 this morning. Cardiology is evaluating the patient and she is on a heparin infusion. (6) Acute hypoxic respiratory failure: Code(s): J96.01 - Acute respiratory failure with hypoxia Status: Acute (7) Polysubstance abuse: Code(s): F19.10 - Other psychoactive substance abuse, uncomplicated Status: Acute (8) Delirium: Code(s): R41.0 - Disorientation, unspecified Status: Acute Assessment and Plan: Currently on a Precedex drip in the ICU. (9) Type 2 diabetes mellitus: Qualifiers: Diabetes mellitus complication status: with hyperglycemia Diabetes mellitus manager long term care insulin use: without manager long term care use Qualified Code(s): E11.65 - Type 2 diabetes mellitus with hyperglycemia Code(s): E11.9 - Type 2 diabetes mellitus without complications Status: Acute Assessment and Plan: No known history of diabetes, but hgb A1C on admission is 7.0. Plan I have discussed the patient's case and plan of care with Dr. Gibson. History of Present Illness Consult details Consult date: 09/30/23 Reason for consult: other (Foot wounds) Requesting physician: David Saenz MD Narrative: This is a 47-year-old woman who we have been asked to see in surgical consultation for foot wounds. Patient is a poor historian, therefore history is obtained by review of her EMR and nursing staff. She has a history of IV drug use with heroin. She also has anxiety, but no known history of diabetes. She apparently had noticed a wound on her right foot about 1-2 weeks that started as a blister that popped. She was brought into the ER yesterday for evaluation of her bilateral lower extremity wounds. In the ER, she was combative and uncooperative, and had to be given Ativan for her agitation as well as Dilaudid. She developed acute respiratory failure and required oxygen supplementation with a non-rebreather.
[2023-09-30] MEDS: PERFLUTREN LIPID MICROSPHERES 1.5 ML VIAL DILUTED TO 10 ML TOTAL VOLUME IV PUSH (10:40)
--- NOTE | 2023-09-30 10:51 | PM.CNCAR ---
Assessment and Plan Assessment and plan (1) Shock: Code(s): R57.9 - Shock, unspecified Status: Acute Assessment and Plan: Appears to be due to septic shock. On pressors. Management as per ICU team. Echocardiogram ordered and pending, will review as soon as available. (2) Elevated troponin: Code(s): R79.89 - Other specified abnormal findings of blood chemistry Status: Acute Assessment and Plan: Troponin of 5.060 with repeat at 6.960. EKGs with sinus tachycardia, low-voltage, possible old anterior infarction (however could also be due to body habitus as well). In setting of septic shock. Echocardiogram ordered and pending. I doubt an acute coronary syndrome. Can stop Heparin drip for now, especially while we are evaluating her pericardial effusion. (3) Pericardial effusion: Code(s): I31.39 - Other pericardial effusion (noninflammatory) Status: Acute Assessment and Plan: Echocardiogram ordered and pending. I did see a few images while the pipe testing technician was in the room, and appreciated a moderate pericardial effusion without gross evidence on tamponade, however, will review the echocardiogram once it is fully completed. (4) Type 2 diabetes mellitus: Qualifiers: Diabetes mellitus jail insulin use: without emt intermediate use Diabetes mellitus complication status: with hyperglycemia Qualified Code(s): E11.65 - Type 2 diabetes mellitus with hyperglycemia Code(s): E11.9 - Type 2 diabetes mellitus without complications Status: Acute Assessment and Plan: Appears to be a new diagnosis for the patient. Management as per primary team. (5) Acute hypoxic respiratory failure: Code(s): J96.01 - Acute respiratory failure with hypoxia Status: Acute Assessment and Plan: On high flow nasal cannula. Management as per ICU team. Plan Recommendations and plan discussed with Hospitalist. History of Present Illness History of Present Illness Consult date/time: 09/30/23 10:51 Requesting physician: David Saenz MD Consult reason: Other (Pericardial effusion) Reason For Visit: DYR Gangrene Right Foot Narrative: We are consulted for pericardial effusion. This is a 47 year old female with obesity, anxiety, history of IV drug use with heroin (reportedly in remission) who presented to [facility] 09/29/2023 for right foot wound. She has wound on both legs. Later on yesterday, patient decompensated and developed acute hypoxic respiratory failure. Patient was initially placed on non-rebreather. She was moved to the ICU, and following central line placement, she became hypotensive. Pressors were started. Patient is currently critically ill, on pressor, high-flow oxygen. History cannot be obtained from the patient as patient is on Precedex. As for her workup thus far: WBC rising up to 21.8 from 15.3. SCr rising up to 1.10 from 0.8. Lactate initially 2.5, but rising to 6.7 and now up to 8.7. Troponin of 5.060 with repeat at 6.960. CRP elevated at 6.3. NT pro BNP of 21,200. Procalcitonin elevated at 11. UDS positive for amphetamines and cannabinoids. Chest CTA with no evidence of PE. Moderate pericardial effusion, moderate bilateral pleural effusions with partial bilateral lobe atelectasis and minimal pulmonary edema. Diffuse soft tissue anasarca changes. Foot CT with no evidence of osteomyelitis. Extensive subcutaneous soft tissue edema, which could reflect cellulitis. No abscess evident. Blood cultures are pending. EKGs with sinus tachycardia, low-voltage, possible old anterior infarction (however could also be due to body habitus as well). Review of Systems Review of Systems: ROS unobtainable: Yes unobtainable due to medical condition and unobtainable due to mental status PMFSH Past Medical History Medical History Amphetamine abuse, continuous Heroin abuse IV drug abuse And skin
[2023-09-30 12:08] LABS: Glucose Point of Care 115 mg/dl (65-105)
[2023-09-30] MEDS: PANTOPRAZOLE SODIUM IV 40 MG VIAL IV PUSH (12:18)
[2023-09-30] MEDS: VASOPRESSIN INJ 100 UNITS in DEXTROSE 5% 95 ML IV CONT (12:18)
[2023-09-30] MEDS: HYDROCORTISONE SODIUM SUCCINATE 100 MG/2 ML VIAL IV PUSH (14:56)
[2023-09-30] MEDS: NOREPINEPHRINE 8 MG/D5W 250 ML 8 MG/250 ML BAG 22.5 MG IV CONT (14:58)
[2023-09-30 15:12] LABS: Hematocrit 49.4 % (37.0-47.0); Hemoglobin 15.1 g/dL (12.0-15.0); Mean Corpuscular HGB Conc 30.6 g/dl (32-36); Mean Corpuscular Hemoglobin 30.8 pg (26-34); Mean Corpuscular Volume 100.6 fl (80-100); Mean Platelet Volume 11.2 fl (7.4-10.4); Platelet Count Result 175 k/mm3 (150-375); Red Blood Count 4.91 M/mm3 (4.2-5.4); Red Cell Distribution Width 18.4 % (11.5-14.5); White Blood Count 24.1 K/mm3 (4.5-10.0)
[2023-09-30 16:22] LABS: Anion Gap 19 mmol/L (8-16); Blood Urea Nitrogen 30 mg/dL (7-17); Calcium 7.9 mg/dL (8.4-10.2); Carbon Dioxide 13 mmol/L (22-30); Chloride 102 mmol/L (98-107); Estimated CRCL calculation 41 ml/min; Estimated Glomerular Filt Rate 32; Glucose 114 mg/dL (65-110); Magnesium 1.6 mg/dL (1.6-2.3); Sodium 134 mmol/L (137-145)
[2023-09-30 16:36] LABS: HIV 1/2 Ab P24 Ag Result Negative (Negative)
[2023-09-30 16:41] LABS: Potassium 4.2 mmol/L (3.4-5.0)
[2023-09-30] MEDS: SODIUM BICARBONATE 8.4% 50 MEQ/50 ML SYRINGE 100 MEQ IV PUSH ×2 (17:26→18:42)
[2023-09-30] MEDS: ETOMIDATE 20 MG/10 ML AMPUL IV PUSH (17:45)
[2023-09-30] MEDS: SUCCINYLCHOLINE CHLORIDE 20 MG/ML 10 ML VIAL 100 MG IV PUSH (17:46)
--- NOTE | 2023-09-30 17:59 | WPDPROCEDUR ---
Procedures Intubation Intubation Date: 09/30/23 Intubation Time: 17:45 Consent: Patient gave emergent consent. A pre-procedural Time-Out was completed immediately before starting the procedure and confirmed: Patient Identification, Site, Procedure, Patient Position and the Availability of Requisite Equipment: Yes Sedative: etomidate Mg given: 20 Paralytic: succinylcholine Mg given: 100 Laryngoscope: fiber optic video scope Assist device used: fiber optic device ET tube size: 7.5 Tube secured depth (cm): 25 Tube secured location: teeth Tube placement confirmation: visualized tube passing through cords, equal breath sounds bilaterally, no breath sounds over epigastrium and confirmation by capnometry Patient tolerated procedure: well Intubation complications: none Additional comments: I received a call from the patient's nurse. She was becoming increasingly hypoxic and less responsive. Dr. Saenz, steeple jack, gave orders for intubation including sedation and vent parameters. The patient was preoxygenated on Airvo 100% FiO2. Vasopressors were increase to keep blood pressure at least 110 systolic. Etomidate 20 mg given however patient was unable to be intubated with just sedation and succinylcholine 100 mg was given. Airway was anterior and view was not great despite readjustments. I asked for a bougie in case there were difficulties intubating however I was able to pass a 7.5 ET tube through the cords quite quickly and atraumatically without complication or drop in oxygen saturations. Placement was confirmed with visualizing tubes going through the vocal cords, misting in the ET tube, absent breath sounds over the abdomen, and equally auscultated lung sounds bilaterally. Post intubation chest x-ray showed the ET tube approximately 3.4 cm above the gregory.
[2023-09-30] MEDS: MIDAZOLAM 100MG/NS 100ML(*CRX) 100 MG/100 ML BAG IV CONT (18:00)
[2023-09-30] MEDS: FENTANYL 2,500MCG/NS250ML(*CRX 2,500 MCG/250 ML BAG 10 MCG IV CONT (18:00)
[2023-09-30 18:29] LABS: Alveolar/Arterial O2 Gradient 549.1 mmHg; Base Excess ABG -13.3 mEq/l (+/-2.0); Fractional Inspired Oxygen 100 %; HCO3 ABG 9.8 mEq/l (22.0-26.0); Oxygen Content ABG 23.5 %vol (16.0-22.0); Oxygen Saturation ABG 98.8 % (95.0-100.0); Oxyhemoglobin 97.5 % THb (90.0-100.0); PO2 ABG 144.7 mmHg (80.0-100.0); PO2 FiO2 Ratio Arterial Blood 1.45 %; pH ABG 7.324 (7.350-7.450)
[2023-09-30] MEDS: MAGNESIUM SULF 2 GM/WATER 50ML 2 GM/50 ML BAG IVPB (18:29)
[2023-09-30 18:32] LABS: Device VENTILATOR; Modified Allen's Test Pass; PCO2 ABG 19.2 mmHg (35.0-45.0); Site Drawn RIGHT RADIAL
[2023-09-30 18:33] LABS: Arterial Blood Gas PEEP 8 cmH2O; Arterial Blood Gas Tidal Volume 400 ml; Arterial Blood Gas Vent Mode CMV; Arterial Blood Gas Ventilator rate 20 /MIN
--- NOTE | 2023-09-30 18:45 | PM.EVENT ---
Event Note Event Note Event Note: 09/30/2023 18:30 Approximately 45 minutes post intubation the patient's blood pressures dropped and remained in the 70s to 80s systolic despite being on maximum dose of norepinephrine and vasopressin. She remains tachycardic in the 110s and is over breathing the ventilator. Fentanyl and Versed were decreased to 75 mcg/hr and 3 mg/hr without benefit. Post intubation ABG showed an HC03 of 9.8 and she was given additional 2 amps of sodium bicarbonate at to help correct the acidosis. 25% albumin ordered q.6 hours x3. Case was discussed with Dr. Saenz and he recommended adding epinephrine drip. Continue to monitor the patient closely. Critical Care Time Critical Care Time: Yes Total Critical Care Time: 35 Attestation: Due to a high probability of clinically significant, life threatening deterioration, the patient required my highest level of preparedness to intervene emergently and I personally spent this critical care time directly and personally managing the patient. This critical care time included obtaining a history; examining the patient; pulse oximetry; ordering and review of studies; arranging urgent treatment with development of a management plan; evaluation of patient's response to treatment; frequent reassessment; and discussions with other providers. It was exclusive of separately billable procedures and treating other patients and teaching time. Please see Assessment and Plan section and the rest of the note for further information on patient assessment and treatment.
[2023-09-30] MEDS: ALBUMIN HUMAN 25% 25 GM/100 ML 100 ML IVPB (18:48)
[2023-09-30 18:50] LABS: Glucose Point of Care 90 mg/dl (65-105)
[2023-09-30 20:11] LABS: Anion Gap 23 mmol/L (8-16); Blood Urea Nitrogen 31 mg/dL (7-17); Calcium 7.7 mg/dL (8.4-10.2); Carbon Dioxide 12 mmol/L (22-30); Chloride 102 mmol/L (98-107); Creatine Kinase 501 U/L (30-135); Estimated CRCL calculation 35 ml/min; Estimated Glomerular Filt Rate 27; Glucose 79 mg/dL (65-110); Magnesium 2.5 mg/dL (1.6-2.3); Potassium 4.7 mmol/L (3.4-5.0); Sodium 137 mmol/L (137-145)
[2023-09-30] MEDS: EPINEPHrine INJ 1 MG in DEXTROSE 5% IN WATER 250 ML 150.6 MG IV CONT (20:17)
[2023-09-30] MEDS: PHENYLEPHRINE 1,000 MCG/10 ML SYRINGE 1000 MCG (20:36)
[2023-09-30] MEDS: SODIUM BICARBONATE 8.4% 150 MEQ in WATER, STERILE FOR INJECTION 950 ML 50 MEQ IV CONT (20:46)
--- NOTE | 2023-09-30 21:02 | PC.NURSE ---
pt hr 127 on monitor pulse oximetry pleth hr 40. unable to palpate pleth cpr started code called see code blue sheet
[2023-09-30 21:04] LABS: Lactic Acid 13.3 mmol/L (0.7-2.0)
--- NOTE | 2023-09-30 21:18 | P.CODEBLUE_ITS ---
I arrived at the code and assisted in patient management. Despite our best efforts patient had no return of cardiac function and . Code Blue Note Code Blue Note Time Arrived at [facility] Blue: Code called at 21:02, I was present at that time. Initial Rhythm on Arrival: PEA. Airway Management: Other (Already intubated.) Chest Compressions: In process on arrival to bedside Result of Code Blue: Pt Cardiac Rhythm Post Code: Asystole. Code Blue Summary: Patient was admitted through the ER yesterday with sepsis and gangrenous foot. Last evening she became hypotensive, a central line was inserted, and she was started on norepinephrine. She was intubated today at 17:45 due to respiratory failure; she was significantly tachypneic on Airvo and was tiring out. Nearly an hour post intubation she became increasingly hypotensive and was eventually on norepinephrine, vasopressin, and epinephrine drips. ABGs and BMP showed continued acidosis and she received a total of 4 amps of sodium bicarbonate and was started on a sodium bicarbonate drip. Despite these measures she lost a pulse. CPR was initiated and during resuscitation efforts, she received sodium bicarbonate, calcium chloride, and epinephrine. After 4 rounds of CPR, she had no pulse and there was no cardiac activity noted on bedside ultrasound. Time of was called at 21:12.
[2023-09-30 21:36] LABS: HIV 1/2 Ab P24 Ag 0.12
--- NOTE | 2023-10-01 11:16 | IVDEFINITY ---
Prior to administration of IV Definity the patient was educated on the risks and benefits of the imaging enhancing agent including potential adverse side effects. The patient verbalized understanding. Allergies were verified. No exclusion criteria were identified and at least one of the following inclusion criteria were met: 1) physician request, 2) patient technically difficult to image (per the [place] [employer] guidelines of two or more segments not discernable within the apical view), or 3) questionable left ventricular function. ?
[2023-10-02 16:18] LABS: Hepatitis C RNA, Quant PCR 426000 IU/mL
--- NOTE | 2023-10-05 10:52 | PC.NURSE ---
Daughter Isaac Florian called to update home to [facility]. I updated release of body form and notified the home. Phone number for [facility] is .
== END 2023-09-30 21:12 | disposition expired | DRG 720 ==
LOC: ANHED 18:53 → ANHICU 09-30 03:28 → ANH3MEDSUR 10-04 14:07 → ANHICU 10-04 14:07
PROVIDERS: Internal Medicine; Physician Assistant; Admitting Provider Internal Medicine; Emergency Provider Emergency Medicine; Visit Provider Internal Medicine
DX: A41.9 Sepsis, unspecified organism (principal); J96.01 Acute respiratory failure with hypoxia; I96 Gangrene, not elsewhere classified; L97.929 Non-pressure chronic ulcer of unspecified part of left lower leg with unspecified severity; L97.919 Non-pressure chronic ulcer of unspecified part of right lower leg with unspecified severity; L97.519 Non-pressure chronic ulcer of other part of right foot with unspecified severity; L98.499 Non-pressure chronic ulcer of skin of other sites with unspecified severity; E11.52 Type 2 diabetes mellitus with diabetic peripheral angiopathy with gangrene; E11.621 Type 2 diabetes mellitus with foot ulcer; I31.39 Other pericardial effusion (noninflammatory); L03.115 Cellulitis of right lower limb; I42.9 Cardiomyopathy, unspecified; J90 Pleural effusion, not elsewhere classified; R65.21 Severe sepsis with septic shock; R57.0 Cardiogenic shock; R60.1 Generalized edema; R79.89 Other specified abnormal findings of blood chemistry; R41.0 Disorientation, unspecified; I36.1 Nonrheumatic tricuspid (valve) insufficiency; E66.9 Obesity, unspecified; F41.9 Anxiety disorder, unspecified; F15.10 Other stimulant abuse, uncomplicated; F19.11 Other psychoactive substance abuse, in remission; Z20.822 Contact with and (suspected) exposure to COVID-19
CPT/HCPCS: 31500; 36415; 36600; 71045; 71275; 73630; 73702; 80048; 80053; 80074; 80307; 81001; 82375; 82550; 82805; 82948; 83036; 83050; 83605; 83735; 83880; 84100; 84145; 84443; 84484; 85025; 85027; 85380; 85384; 85610; 85730; 86140; 86703; 87040; 87086; 87186; 87522; 87637; 87641; 92950; 93005; 94002; 94640; 96374; 96375; 99285; C1751; C8929; C9113; G0378; G0432; J0171; J0330; J1170; J1200; J1644; J1720; J1940; J2060; J2185; J2250; J2371; J2405; J2543; J3010; J3370; J3475; J7030; J7060; P9047; Q9957; Q9967